=== PATIENT | female | born 1970 | race Caucasian/White ===

== ENCOUNTER 2021-04-13 09:18 | Emergency (ER) | payer OTHER ==
[~2021-04-13] VITALS: Ht 167.6 cm; Wt 104.1 kg
[2021-04-13] MEDS ORDERED: erythromycin 0.5% OP (10:16)
[2021-04-13] MEDS ORDERED: [UNRECOGNIZED DRUG - OTHER] (10:16)
[2021-04-13] MEDS ORDERED: METOPROLOL SUCC50 MG PO (10:38)
[2021-04-13] MEDS ORDERED: ONDANSETRON ODT4 MG PO (10:55)
[2021-04-13] MEDS ORDERED: ONDANSETRON HCL 4 MG ORAL DISINTEGRATING TAB PO ONE (11:00)
[2021-04-13] MEDS ORDERED: KETOROLAC TROMETHAMINE 30 MG/ML VIAL IM ONE (11:00)
[2021-04-13] MEDS ORDERED: KETOROLAC TROMETHAMINE 30 MG/ML VIAL ONE (11:04)
== END 2021-04-13 12:00 | disposition home or self-care (01) ==
LOC: FSED 09:26
DX: H57.13 Ocular pain, bilateral (principal); H18.822 Corneal disorder due to contact lens, left eye; I10 Essential (primary) hypertension
CPT/HCPCS: 96372; 99283; J1885; Q0162